=== PATIENT | male | born 1955 | race American Indian/Alaskan Native ===

== ENCOUNTER 2020-11-12 01:59 | Inpatient (IN) | payer MEDICARE ==
[2020-11-12 03:05] LABS: Hematocrit 42.8 % (35.5-45.6); Hemoglobin 14.3 gm/dl (11.8-15.2); Mean Corpuscular HGB Conc 34 % (32-34); Mean Corpuscular Volume 99 fl (84-94); Platelet Count 174 K/mm3 (140-440); Red Blood Count 4.31 M/mm3 (3.65-5.03); Red Cell Distribution Width 14.9 % (13.2-15.2)
[2020-11-12 03:16] LABS: Calcium 8.4 mg/dL (8.4-10.2)
[2020-11-12] MEDS ORDERED: FUROSEMIDE 40 MG/4 ML INJ IV ONE (03:52)
--- NOTE | 2020-11-12 04:20 | Emergency Department Report ---
ED Extremity Problem HPI - General Chief complaint: Extremity Injury, Lower Stated complaint: LEG AND FEET PAIN Source: patient Mode of arrival: Ambulatory Limitations: No Limitations - History of Present Illness Initial comments: 65-year-old male with history of either COPD and asthma as he states he is on oxygen, Spiriva who presents to emergency department complaint of bilateral lower extremity leg swelling. He denies any fevers chills or coughing. He states he has not had chest pain or shortness of breath. Patient was evaluated in triage where he was noted to have an elevated BNP to 13,000. 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 MD Complaint: extremity pain, extremity swelling - Related Data Allergies Allergy/AdvReac Type Severity Reaction Status Date / Time No Known Allergies Allergy Verified 11/12/20 03:18 ED Review of Systems ROS: Stated complaint: LEG AND FEET PAIN Other details as noted in HPI Constitutional: denies: chills, fever Eyes: denies: eye discharge ENT: denies: dental pain Respiratory: denies: cough, shortness of breath Cardiovascular: edema. denies: chest pain Endocrine: no symptoms reported Gastrointestinal: denies: abdominal pain, nausea, vomiting Genitourinary: denies: dysuria Musculoskeletal: denies: back pain Skin: denies: rash Neurological: denies: headache, weakness Psychiatric: denies: anxiety, depression Hematological/Lymphatic: denies: easy bleeding ED Past Medical Hx - Past Medical History Previous Medical History?: No - Surgical History Past Surgical History?: No ED Physical Exam - General Limitations: No Limitations General appearance: alert - Head Head exam: Present: atraumatic, normocephalic - Eye Eye exam: Present: normal appearance - ENT ENT exam: Present: mucous membranes moist - Neck Neck exam: Present: normal inspection - Respiratory Respiratory exam: Present: wheezes, rales. Absent: normal lung sounds kp aterally, respiratory distress - Cardiovascular Cardiovascular Exam: Present: regular rate, normal rhythm. Absent: systolic murmur, diastolic murmur, rubs, gallop - GI/Abdominal GI/Abdominal exam: Present: soft, normal bowel sounds - Rectal Rectal exam: Present: deferred - Extremities Exam Extremities exam: Present: other (bilateral LE pitting edema; 2+) - Back Exam Back exam: Present: normal inspection, full ROM. Absent: tenderness - Neurological Exam Neurological exam: Present: alert, oriented X3 - Psychiatric Psychiatric exam: Present: normal affect, depressed - Skin Skin exam: Present: warm, dry, intact ED Course Vital Signs 11/12/20 11/12/20 11/12/20 02:11 03:15 03:31 Temperature 97.6 F 97.7 F Pulse Rate 108 H 93 H 92 H Respiratory 18 21 21 Rate Blood Pressure 113/76 136/88 127/88 Blood Pressure 136/88 [Left] O2 Sat by Pulse 86 98 100 Oximetry 11/12/20 11/12/20 11/12/20 03:45 04:01 04:15 Temperature Pulse Rate 93 H 90 96 H Respiratory 22 20 22 Rate Blood Pressure 136/94 149/103 139/93 Blood Pressure [Left] O2 Sat by Pulse 100 98 97 Oximetry - Reevaluation(s) Reevaluation #1: 11/12/20 05:40 Patient remained stable. I have given IV Lasix for his leg swelling in signs of pulmonary edema on chest x-ray and lung exam. ED Medical Decision Making - Lab Data Result diagrams: 11/12/20 02:17 11/12/20 02:17 - EKG Data -: EKG Interpreted by Me No standard instances [place]/QRS: LAHB/LAFB T wave inversions noted in: v1, v2, v3, v4 - EKG Data Interpretation: nonspecific ST-T wave jv - Radiology Data Radiology results: report reviewed, image reviewed - Medical Decision Making Patient is a 65-year-old male presents to emergency department with complaints of leg swelling. Patient denies history of previous CHF exacerbation or diagnosis of CHF. He also denies feeling any chest pain or shortness of breath however he is on home oxygen for likely COPD or asthma. Patient has Rales noted at the bilateral bases he also has bilateral lower extremity pitting edema and in triage patient's BNP was 13,000. Given this I am concerned for new onset heart failure and I have given patient a dose of Lasix and I am closely monitoring his electrolytes. Patient to be admitted for new onset heart failure likely echocardiogram and cardiology consultation as well as further diuresis. Critical care attestation.: If time is entered above; I have spent that time in minutes in the direct care of this critically ill patient, excluding procedure time. ED Disposition Clinical Impression: Pulmonary edema, Fluid overload, New onset of congestive heart failure Disposition: OP ADMIT IP TO THIS HOSP Is pt being admited?: Yes Does the pt Need Aspirin: No Condition: Stable Instructions: Pulmonary Edema (ED) Referrals: PRIMARY CARE, [Primary Care Provider] - 3-5 Days Time of Disposition: 05:42
--- NOTE | 2020-11-12 04:20 | XRay Report ---
CHEST 1 VIEW 11/12/2020 3:12 AM INDICATION / CLINICAL INFORMATION: elevated bnp 13k. COMPARISON: None available FINDINGS: Patient is rotated SUPPORT DEVICES: None. HEART / MEDIASTINUM: No acute abnormality LUNGS / PLEURA: There is diffuse interstitial disease in the lungs this may represent edema but is mo re likely chronic interstitial lung disease. This is relatively severe. No pneumothorax. A more focal airspace opacity in the left midlung zone. ADDITIONAL FINDINGS: No significant additional findings. IMPRESSION: 1. There is severe bilateral interstitial disease which could represent edema but is more likely incident handler melany. There is no prior imaging available for comparison at this facility. 2. There is some coarse focal airspace opacity in the left midlung zone which could represent superim posed pneumonia. Signer Name: Ady Richter MD Signed: 11/12/2020 4:15 AM Workstation Name: [id number]
[2020-11-12 05:22] LABS: Albumin 2.5 g/dL (3.9-5); Bilirubin,Direct 0.2 mg/dL (0-0.2)
--- NOTE | 2020-11-12 06:13 | History and Physical Report ---
History of Present Illness Date of examination: 11/12/20 Date of admission: 11/12/20 05:42 Chief complaint: Bilateral leg edema History of present illness: 65-year-old male with history of either COPD and asthma as he states he is on oxygen, Spiriva who presents to emergency department complaint of bilateral lower extremity leg swelling. He denies any fevers chills or coughing. He states he has not had chest pain or shortness of breath. Patient was evaluated in triage where he was noted to have an elevated BNP to 13,000. 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 ED work-up WBC 3.6 H&H 14.3 platelet 174 sodium is 136 creatinine 1.4, BNP 70414, serum albumin 2.5, and serum glucose 126. Checks x-ray done showed severe bilateral interstitial disease which include present edema very small li brady chronic there is some coarse focal airspace opacity in the left midlung zone likely secondary to pneumonia. Patient seen in ED at bedside. Patient alert oriented x3. Patient is on oxygen and he said he is on home oxygen due to COPD. Patient denies ever smoking tobacco and he said he does not know how he gets COPD. Patient denies alcohol and illicit drug use. Patient admitted history of HIV on antiviral but could not remember his medication. We will resume his home antiviral. Patient advised to get of the names of the medicine and he voiced understanding. Past History Past Medical History: COPD, heart failure, HIV/AIDS Past Surgical History: No surgical history Social history: lives with family Family history: no significant family history Medications and Allergies Allergies Allergy/AdvReac Type Severity Reaction Status Date / Time No Known Allergies Allergy Verified 11/12/20 06:30 Review of Systems Constitutional: fatigue, weakness Ears, nose, mouth and throat: no epistaxis, no bleeding gums Cardiovascular: orthopnea, edema, shortness of breath, leg edema, no chest pain Respiratory: shortness of breath Gastrointestinal: no BRBPR, no melena Rectal: no hemorrhoids Musculoskeletal: no neck stiffness Integumentary: no redness, no sores Neurological: no seizures, no syncope Psychiatric: anxiety, no suicidal ideation, no disorientation, no hallucinations Hematologic/Lymphatic: no easy bruising, no easy bleeding Allergic/Immunologic: no urticaria Exam - Constitutional Vitals: Temp Pulse Resp BP Pulse Ox 97.7 F 84 20 136/88 99 11/12/20 03:15 11/12/20 05:45 11/12/20 05:45 11/12/20 05:45 11/12/20 05:45 General appearance: Present: no acute distress, well-nourished - EENT Eyes: Present: PERRL ENT: hearing intact, clear oral mucosa - Neck Neck: Present: supple, normal ROM - Respiratory Respiratory effort: normal Respiratory: bilateral: CTA - Cardiovascular Heart Sounds: Present: S1 & S2. Absent: rub, click - Extremities Extremities: pulses symmetrical, No edema Peripheral Pulses: within normal limits - Abdominal General gastrointestinal: Present: soft, non-tender, non-distended, normal bowel sounds Male genitourinary: Present: normal - Integumentary Integumentary: Present: clear, warm, dry - Musculoskeletal Musculoskeletal: gait normal, strength equal bilaterally - Psychiatric Psychiatric: appropriate mood/affect, intact judgment & insight - Neurologic Neurologic: CNII-XII intact, moves all extremities - Allied Health Allied health notes reviewed: nursing HEART Score - HEART Score Troponin: Troponin T 0.022 ng/mL (0.00-0.029) 11/12/20 04:14 Results - Labs CBC & Chem 7: 11/12/20 02:17 11/12/20 02:17 Labs: Abnormal lab results 11/12/20 11/12/20 11/12/20 Range/Units 02:17 02:17 04:14 WBC 3.6 L (4.5-11.0) K/mm3 MCV 99 H (84-94) fl MCH 33 H (28-32) pg Sodium 136 L (137-145) mmol/L Creatinine 1.4 H (0.8-1.3) mg/dL Glucose 126 H (75-100) mg/dL NT-Pro-B Natriuret Pep 70567 H (0-900) pg/mL Albumin 2.5 L (3.9-5) g/dL Assessment and Plan - Patient Problems (1) New onset of congestive heart failure Current Visit: Yes Status: Acute Plan to address problem: Start cardioprotective measures Antiplatelet, BB, diuretic and oxygen supplement Echocardiogram Cardiology consult (2) Pulmonary edema Current Visit: Yes Status: Acute Plan to address problem: Likely secondary to CHF/pneumonia Continue diuretic and antibiotics Cell Attendant consult (3) HIV (human immunodeficiency virus infection) Current Visit: Yes Status: Acute Plan to address problem: We will resume patient's home antiviral Patient unable to remember his home medicine (4) Severe protein-calorie malnutrition Current Visit: Yes Status: Acute Plan to address problem: Encourage oral intake Consult route delivery driver encourage oral intake (5) Acute kidney failure Current Visit: Yes Status: Acute Plan to address problem: Monitor kidney function Advised to avoid nephrotoxic including nonsteroidal anti-inflammatory agent like ibuprofen (6) Pneumonia involving left lung Current Visit: Yes Status: Acute Plan to address problem: left midlung airspace opacity likely secondary to pneumonia appreciated on chest x-ray Start azithromycin and Rocephin Bronchodilator and oxygen supplement Serial chest x-ray to check for resolution (7) History of chronic obstructive pulmonary disease Current Visit: Yes Status: Acute Plan to address problem: Resume home bronchodilator Patient is on home oxygen Cell Attendant consult (8) Full code status Current Visit: Yes Status: Acute Plan to address problem: Patient is a full code (9) DVT prophylaxis Current Visit: Yes Status: Acute Plan to address problem: Subcutaneous heparin
[2020-11-12] MEDS ORDERED: ACETAMINOPHEN 325 MG TAB PO PRN (06:17)
[2020-11-12] MEDS ORDERED: NALOXONE 0.4 MG/1 ML INJ IV PRN (06:17)
[2020-11-12] MEDS ORDERED: ONDANSETRON 4 MG/2 ML INJ IV PRN (06:17)
[2020-11-12] MEDS ORDERED: HYDROmorphone 1 MG/1 ML INJ IV PRN (06:17)
[2020-11-12] MEDS ORDERED: oxyCODONE /ACETAMINOPHEN 5-325MG TAB PO PRN (06:17)
[2020-11-12] MEDS ORDERED: ALUM-MAG HYDROXIDE-SIMETHICONE 200-200-20MG/5ML ORAL LIQD 30 ML PO PRN (06:17)
[2020-11-12] MEDS ORDERED: MAGNESIUM HYDROXIDE (MOM) ORAL LIQD UDC PO PRN (06:17)
[2020-11-12] MEDS ORDERED: ALPRAZolam 0.25 MG TAB PO PRN (06:17)
[2020-11-12] MEDS ORDERED: SENNOSIDES 8.6 MG TAB PO PRN (06:17)
[2020-11-12] MEDS ORDERED: traZODone 50 MG TAB PO PRN (06:29)
[2020-11-12] MEDS ORDERED: traMADol 50 MG TAB PO PRN (06:29)
[2020-11-12] MEDS ORDERED: hydrALAZINE 20 MG/1 ML INJ IV PRN (06:32)
[2020-11-12] MEDS ORDERED: AZITHROMYCIN/NS 500 MG/250 ML 500 MG/250 ML BAG IV SCH (07:00)
[2020-11-12] MEDS ORDERED: cefTRIAXone/NS 1 GM/50 ML 1 GM/50 ML BAG IV SCH (07:00)
[2020-11-12] MEDS ORDERED: cefTRIAXone/NS 2 GM/100 ML 2 GM/100 ML BAG IV SCH (07:00)
--- NOTE | 2020-11-12 08:37 | Consultation ---
History of Present Illness Consult date: 11/12/20 Reason for consult: asthma, COPD, hypoxemia History of present illness: 65 y/o male with chronic respiratory failure presents for lower ext edema. Per patient has chronic respiratory failure and is on 2 liters of oxygen. He is not short of breath nor complains of this. 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 CXR shows what appears to chronic ILD with possible super imposed pulmonary edema. Patient does have elevated BNP. Per patient he see's a lung doctor [place] [address] but cannot spell the name. He also does not know if he is on any meds for breathing. Per patient, that physician never told him he had COPD, "all of the others" have. He is a life long nonsmoker. Past History Past Medical History: COPD, heart failure, HIV/AIDS Past Surgical History: No surgical history Social history: lives with family Family history: no significant family history Medications and Allergies Allergies Allergy/AdvReac Type Severity Reaction Status Date / Time No Known Allergies Allergy Verified 11/12/20 06:30 Active Meds: Active Medications Acetaminophen (Acetaminophen 325 Mg Tab) 650 mg PO Q4H PRN PRN Reason: Pain MILD(1-3)/Fever >100.5/CHANDRA Al Hydrox/Mg Hydrox/Simethicone (Alum-Mag Hydroxide-Simethicone 133-175-29mt/5ml Oral Liqd 30 Ml) 30 ml PO Q4H PRN PRN Reason: Indigestion Alprazolam (Alprazolam 0.25 Mg Tab) 0.125 mg PO Q8H PRN PRN Reason: Agitation Aspirin (Aspirin Ec 81 Mg Tab) 81 mg PO QDAY [facility] Carvedilol (Carvedilol 3.125 Mg Tab) 3.125 mg PO BID [facility] Famotidine (Famotidine 20 Mg/2 Ml Inj) 20 mg IV BID [facility] Furosemide (Furosemide 40 Mg/4 Ml Inj) 40 mg IV BID@0600,1800 [facility] Heparin Sodium (Porcine) (Heparin 5,000 Unit/1 Ml Vial) 5,000 unit SUB-Q Q12HR [facility] Hydralazine HCl (Hydralazine 20 Mg/1 Ml Inj) 5 mg IV Q4HR PRN PRN Reason: Hypertension Azithromycin (Zithromax/Ns) 500 mg in 250 mls @ 250 mls/hr IV Q24H [facility]; Protocol Ceftriaxone Sodium (Rocephin/Ns 1 Gm/50 Ml) 1 gm in 50 mls @ 100 mls/hr IV Q24H [facility]; Protocol Last Admin: 11/12/20 06:42 Dose: 100 mls/hr Documented by: Magnesium Hydroxide (Magnesium Hydroxide (Mom) Oral Liqd Udc) 30 ml PO Q4H PRN PRN Reason: Constipation Naloxone HCl (Naloxone 0.4 Mg/1 Ml Inj) 0.1 mg IV Q2MIN PRN PRN Reason: Res Rate </= 8 or 02 SAT < 92% Ondansetron HCl (Ondansetron 4 Mg/2 Ml Inj) 4 mg IV Q8H PRN PRN Reason: Nausea And Vomiting Oxycodone/Acetaminophen (Oxycodone /Acetaminophen 5-325mg Tab) 1 tab PO Q6H PRN PRN Reason: Pain, Moderate (4-6) Senna (Sennosides 8.6 Mg Tab) 8.6 mg PO Q12HR PRN PRN Reason: Constipation Sodium Chloride (Sodium Chloride 0.9% 10 Ml Flush Syringe) 10 ml IV BID [facility] Tramadol HCl (Tramadol 50 Mg Tab) 50 mg PO Q6H PRN PRN Reason: Pain, Moderate (4-6) Trazodone HCl (Trazodone 50 Mg Tab) 50 mg PO QHS PRN PRN Reason: Insomnia Physical Examination Vital signs: Vital Signs Temp Pulse Resp BP Pulse Ox 97.6 F 108 H 18 113/76 86 11/12/20 02:11 11/12/20 02:11 11/12/20 02:11 11/12/20 02:11 11/12/20 02:11 General appearance: no acute distress, alert Ascultation: Bilateral: rales (dry and wet crackles present) Percussion: Bilateral: not dull Extremities: edema Results - Laboratory Findings CBC and BMP: 11/12/20 02:17 11/12/20 02:17 Abnormal lab findings: Abnormal Labs 11/12/20 11/12/20 11/12/20 02:17 02:17 02:17 WBC 3.6 L MCV 99 H MCH 33 H Sodium 136 L Creatinine 1.4 H Glucose 126 H Hemoglobin A1c 6.2 H NT-Pro-B Natriuret Pep 70749 H Albumin 11/12/20 04:14 WBC MCV MCH Sodium Creatinine Glucose Hemoglobin A1c NT-Pro-B Natriuret Pep Albumin 2.5 L - Diagnostic Findings Chest x-ray: image reviewed (please see HPI for my interpretation) Assessment and Plan 65 y/o male with LE edema and chronic respiratory found to have abnormal CXR which is chronic. 1. Given low WBC and no fever with no other symptoms, doubt pneumonia despite CXR read. Would stop abx therapy 2. Continue supplemental oxygen 3. Patient is not in a COPD exacerbation so no systemic steroids are indicated 4. Suggest finding his pharmacy and reconciling meds to see if we can find the name of his outside pulm doc 5. He is unaware if he has had a CT but thinks that he may have. Would suggest obtaining outside records first before repeating things that have already been done 6. Rupert worley patient is stable and not in an acute flare of his underlying ILD. At this point, will sign off.
[2020-11-12] MEDS: ASPIRIN EC 81 MG TAB PO SCH (09:58)
[2020-11-12] MEDS: carvediloL 3.125 MG TAB PO SCH ×2 (09:58→22:18)
[2020-11-12] MEDS: HEPARIN 5,000 UNIT/1 ML VIAL SUB-Q SCH ×2 (09:59→22:18)
[2020-11-12] MEDS: FAMOTIDINE 20 MG/2 ML INJ IV SCH ×2 (09:59→22:18)
--- NOTE | 2020-11-12 10:23 | Electrocardiograph Report ---
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
--- NOTE | 2020-11-12 10:24 | Consultation ---
History of Present Illness Consult date: 11/12/20 Requesting physician: ALFREDO GOYAL Consult reason: congestive heart failure History of present illness: This patient is a 65-year-old male with a significant history of chronic interstitial fibrosis on home oxygen via nasal cannula 2 L/min, HIV with undetectable CD4 count. He is previously unknown to our practice. Patient presents to [facility] ER with complaint of bilateral lower extremity edema x3 months. BNP is noted to be elevated on admission. Patient denies any weakness, dizziness, chest pain, shortness of breath, abdominal pain, N/V/D, recent illness or known exposures. He is not followed by cardiology. Patient denies any history of tobacco, EtOH, recreational drugs. Patient denies any previous diagnosis of heart failure or cardiomyopathy. Past History Past Medical History: COPD, HIV/AIDS, other (See HPI) Past Surgical History: No surgical history Social history: lives with family Family history: no significant family history Medications and Allergies Allergies Allergy/AdvReac Type Severity Reaction Status Date / Time No Known Allergies Allergy Verified 11/12/20 06:30 Active Meds: Active Medications Acetaminophen (Acetaminophen 325 Mg Tab) 650 mg PO Q4H PRN PRN Reason: Pain MILD(1-3)/Fever >100.5/CHANDRA Al Hydrox/Mg Hydrox/Simethicone (Alum-Mag Hydroxide-Simethicone 249-528-28ns/5ml Oral Liqd 30 Ml) 30 ml PO Q4H PRN PRN Reason: Indigestion Alprazolam (Alprazolam 0.25 Mg Tab) 0.125 mg PO Q8H PRN PRN Reason: Agitation Aspirin (Aspirin Ec 81 Mg Tab) 81 mg PO QDAY [facility] Last Admin: 11/12/20 09:58 Dose: 81 mg Documented by: Carvedilol (Carvedilol 3.125 Mg Tab) 3.125 mg PO BID [facility] Last Admin: 11/12/20 09:58 Dose: 3.125 mg Documented by: Famotidine (Famotidine 20 Mg/2 Ml Inj) 20 mg IV BID [facility] Last Admin: 11/12/20 09:59 Dose: 20 mg Documented by: Furosemide (Furosemide 40 Mg/4 Ml Inj) 40 mg IV BID@0600,1800 [facility] Heparin Sodium (Porcine) (Heparin 5,000 Unit/1 Ml Vial) 5,000 unit SUB-Q Q12HR [facility] Last Admin: 11/12/20 09:59 Dose: 5,000 unit Documented by: Hydralazine HCl (Hydralazine 20 Mg/1 Ml Inj) 5 mg IV Q4HR PRN PRN Reason: SBP >/=160; DBP >/=100 Magnesium Hydroxide (Magnesium Hydroxide (Mom) Oral Liqd Udc) 30 ml PO Q4H PRN PRN Reason: Constipation Naloxone HCl (Naloxone 0.4 Mg/1 Ml Inj) 0.1 mg IV Q2MIN PRN PRN Reason: Res Rate </= 8 or 02 SAT < 92% Ondansetron HCl (Ondansetron 4 Mg/2 Ml Inj) 4 mg IV Q8H PRN PRN Reason: Nausea And Vomiting Oxycodone/Acetaminophen (Oxycodone /Acetaminophen 5-325mg Tab) 1 tab PO Q6H PRN PRN Reason: Pain, Moderate (4-6) Senna (Sennosides 8.6 Mg Tab) 8.6 mg PO Q12HR PRN PRN Reason: Constipation Sodium Chloride (Sodium Chloride 0.9% 10 Ml Flush Syringe) 10 ml IV BID [facility] Last Admin: 11/12/20 09:59 Dose: 10 ml Documented by: Tramadol HCl (Tramadol 50 Mg Tab) 50 mg PO Q6H PRN PRN Reason: Pain, Moderate (4-6) Trazodone HCl (Trazodone 50 Mg Tab) 50 mg PO QHS PRN PRN Reason: Insomnia Review of Systems Constitutional: no weight loss, no weight gain, no fever, no chills, no sweats, no night sweats, no fatigue, no weakness, no malaise, no lethargy Ears, nose, mouth and throat: no ear pain, no nose pain, no nasal congestion, no nasal discharge Cardiovascular: edema, no chest pain, no orthopnea, no palpitations, no rapid/irregular heart beat, no syncope, no lightheadedness, no shortness of breath Respiratory: shortness of breath, home oxygen, no cough, no hemoptysis, no dyspnea on exertion Gastrointestinal: no abdominal pain, no nausea, no vomiting, no diarrhea Genitourinary Male: no flank pain Musculoskeletal: no neck stiffness, no neck pain, no shooting arm pain, no arm numbness/tingling, no low back pain, no shooting leg pain Integumentary: no rash, no pruritis, no redness, no sores, no wounds Neurological: no head injury, no paralysis, no weakness, no parathesias, no numbness, no tingling, no seizures, no syncope Psychiatric: no anxiety Endocrine: no cold intolerance, no heat intolerance Hematologic/Lymphatic: no easy bruising, no easy bleeding Allergic/Immunologic: no urticaria Physical Examination Last Vital Signs Temp 97.7 F 11/12/20 03:15 Pulse 78 11/12/20 09:58 Resp 20 11/12/20 08:01 BP 131/79 11/12/20 09:58 Pulse Ox 90 11/12/20 09:15 General appearance: no acute distress HEENT: Positive: PERRL, Normocephaly, Mucus Membranes Moist Neck: Positive: neck supple, trachea midline Cardiac: Positive: Reg Rate and Rhythm, S1/S2 Lungs: Positive: Normal Breath Sounds, Oxygen Neuro: Positive: Grossly Intact Abdomen: Positive: Unremarkable, Soft Skin: Negative: Rash, Wound Musculoskeletal: No Pain Extremities: Present: upper extr. pulses, lower extr. pulses, +1 Edema Results 11/12/20 02:17 11/12/20 02:17 Cardiac Enzymes 11/12/20 Range/Units 04:14 AST 37 (5-40) units/L CBC 11/12/20 Range/Units 02:17 WBC 3.6 L (4.5-11.0) K/mm3 RBC 4.31 (3.65-5.03) M/mm3 Hgb 14.3 (11.8-15.2) gm/dl Hct 42.8 (35.5-45.6) % Plt Count 174 (140-440) K/mm3 Comprehensive Metabolic Panel 11/12/20 11/12/20 Range/Units 02:17 04:14 Sodium 136 L (137-145) mmol/L Potassium 4.2 (3.6-5.0) mmol/L Chloride 99.9 (98-107) mmol/L Carbon Dioxide 28 (22-30) mmol/L BUN 15 (9-20) mg/dL Creatinine 1.4 H (0.8-1.3) mg/dL Glucose 126 H (75-100) mg/dL Calcium 8.4 (8.4-10.2) mg/dL Direct Bilirubin 0.2 (0-0.2) mg/dL Indirect Bilirubin 0.4 mg/dL AST 37 (5-40) units/L ALT 21 (7-56) units/L Alkaline Phosphatase 129 (35-129) units/L Total Protein 7.7 (6.3-8.2) g/dL Albumin 2.5 L (3.9-5) g/dL - Imaging and Cardiology Echo: pending EKG: report reviewed, image reviewed EKG interpretations - Telemetry EKG Rhythm: Sinus Rhythm - EKG Sinus rhythms and dysrhythmias: sinus rhythm Assessment and Plan New onset of acute heart failure * Echocardiogram is pending * Optimize volume control: Reduce Lasix to 40 mg IV daily. * GDMT: ASA 81. Lipid panel pending. Continue Coreg 3.125. Acute on chronic respiratory failure * Patient denies any current shortness of breath. Currently on supplemental O2 via nasal cannula. Patient is on home O2 at 2 L/min * Per pulmonology patient has significant history of chronic interstitial fibrosis with chronic hypoxemia DVT prophylaxis * Heparin SQ Echocardiogram is pending. Will follow. This patient was seen in conjunction with Dr. Andrade who agrees with this assessment and plan of care - Patient Problems (1) Acute on chronic respiratory failure Current Visit: Yes Status: Acute (2) DVT prophylaxis Current Visit: Yes Status: Acute (3) HIV (human immunodeficiency virus infection) Current Visit: Yes Status: Chronic (4) New onset of congestive heart failure Current Visit: Yes Status: Acute (5) Leg edema Current Visit: Yes Status: Acute (6) Interstitial pulmonary fibrosis Current Visit: Yes Status: Chronic
--- NOTE | 2020-11-12 15:05 | Event Note ---
Date: 11/12/20 Patient seen and examined this is the second visit after midnight 65-year-old male with a history of chronic respiratory failure on 2 L home O2 pr esented to the hospital with lower extremity swelling and worsening difficulty in breathing. Cardiology consulted, 2D echo ordered. Continue IV Lasix and breathing treatment as needed Patient denies any chest pain, states his breathing has been improved He was recently seen at [facility] and he presented to [facility] for second opinion as his symptoms has been persistent since his recent discharge from [facility] We will follow clinically, monitor ins and O's/daily weight We will get records from [facility] and follow 2D echo result -It took me about 28 minutes to reevaluate and reasses this patient, discussed with RN/CM, review medical documents, lab results, imaging, medication list and placing order.
[2020-11-12] MEDS: FUROSEMIDE 40 MG/4 ML INJ IV SCH (18:04)
[2020-11-13 04:43] VITALS: BP 108/71
[2020-11-13] MEDS: FUROSEMIDE 40 MG/4 ML INJ IV SCH (06:16)
[2020-11-13 09:55] LABS: Basophils % (Auto) 0.6 % (0.0-1.8); Eosinophils # (Auto) 0.1 K/mm3 (0.0-0.4); Eosinophils % (Auto) 3.4 % (0.0-4.3); Hematocrit 43.4 % (35.5-45.6); Hemoglobin 14.4 gm/dl (11.8-15.2); Lymphocytes # (Auto) 0.9 K/mm3 (1.2-5.4); Lymphocytes % (Auto) 26.4 % (13.4-35.0); Mean Corpuscular HGB Conc 33 % (32-34); Mean Corpuscular Volume 99 fl (84-94); Monocytes # (Auto) 0.4 K/mm3 (0.0-0.8); Monocytes % (Auto) 12.1 % (0.0-7.3); Platelet Count 172 K/mm3 (140-440); Red Blood Count 4.37 M/mm3 (3.65-5.03); Red Cell Distribution Width 14.8 % (13.2-15.2)
[2020-11-13 10:08] LABS: Alanine Aminotransferase 17 units/L (7-56); Albumin 2.4 g/dL (3.9-5); BUN/Creatinine Ratio 11; Blood Urea Nitrogen 15 mg/dL (9-20); Calcium 8.3 mg/dL (8.4-10.2); Chol/HDL Ratio 10.23 %; HDL Cholesterol 13 mg/dL (40-59); Hemolysis Index 17; LDL Cholesterol,Direct 84 mg/dL (50-130)
[2020-11-13] MEDS: FAMOTIDINE 20 MG/2 ML INJ IV SCH (10:50)
[2020-11-13] MEDS: ASPIRIN EC 81 MG TAB PO SCH (10:50)
[2020-11-13] MEDS: carvediloL 3.125 MG TAB PO SCH (10:50)
[2020-11-13] MEDS: HEPARIN 5,000 UNIT/1 ML VIAL SUB-Q SCH (10:50)
--- NOTE | 2020-11-13 12:36 | Progress Note ---
Assessment and Plan New onset of acute heart failure in setting of right ventricle cardiomyopathy * Echocardiogram 11/12/2020: LVEF 50 to 55%. LV normal size, LV SF normal. Flattened septum consistent with right ventricular volume overload. Mild diastolic dysfunction present. RV severely dilated. Septum is flattened in systole consistent with RV pressure overload. Right ventricle is mildly hypokinetic. Moderator band is seen in the right ventricle. Mild TR, RVSP 22 mmHg. Mild TX. * Optimize volume control: Reduce Lasix to 20 mg p.o. daily * GDMT: ASA 81mg daily, Atorvastatin 40mg qhs, Coreg 3.125mg BID. Acute on chronic respiratory failure * Patient denies any current shortness of breath. Currently on supplemental O2 via nasal cannula. Patient is on home O2 at 2 L/min * Per pulmonology patient has significant history of chronic interstitial fibrosis with chronic hypoxemia DVT prophylaxis * Heparin SQ Patient is currently stable cardiac status. Patient may discharge from cardiology standpoint on regimen of Lasix 20 mg p.o. daily. Patient should follow-up with Dr Andrade, [facility] heart specialists (scheduling pending) #[phone] This patient was seen in conjunction with Dr. Andrade who agrees with this assessment and plan of care - Patient Problems (1) Acute on chronic respiratory failure Current Visit: Yes Status: Acute (2) DVT prophylaxis Current Visit: Yes Status: Acute (3) HIV (human immunodeficiency virus infection) Current Visit: Yes Status: Chronic (4) New onset of congestive heart failure Current Visit: Yes Status: Acute (5) Leg edema Current Visit: Yes Status: Acute (6) Interstitial pulmonary fibrosis Current Visit: Yes Status: Chronic (7) Cor pulmonale Current Visit: Yes Status: Acute (8) Right heart failure due to pulmonary hypertension Current Visit: Yes Status: Acute Subjective Date of service: 11/13/20 Principal diagnosis: Cor Pulmonale Interval history: Patient resting comfortably in bed. No shortness of breath or chest pain overnight Telemetry reviewed shows sinus tach 108 with no events Objective - Physical Examination HEENT: Positive: PERRL, Normocephaly, Mucus Membranes Moist Neck: Positive: neck supple, trachea midline Cardiac: Positive: Regular Rhythm, S1/S2 Lungs: Positive: Normal Exam, Normal Breath Sounds Neuro: Positive: Grossly Intact Abdomen: Positive: Unremarkable, Soft Skin: Negative: Rash, Wound Musculoskeletal: No Pain Extremities: Present: upper extr. pulses, lower extr. pulses, +1 Edema - Labs and Meds Cardiac Enzymes 11/13/20 Range/Units 08:45 AST 30 (5-40) units/L Lipids 11/13/20 Range/Units 08:45 Triglycerides 49 (2-149) mg/dL Cholesterol 133 (50-199) mg/dL HDL Cholesterol 13 L (40-59) mg/dL Cholesterol/HDL Ratio 10.23 % CBC 11/13/20 Range/Units 08:45 WBC 3.2 L (4.5-11.0) K/mm3 RBC 4.37 (3.65-5.03) M/mm3 Hgb 14.4 (11.8-15.2) gm/dl Hct 43.4 (35.5-45.6) % Plt Count 172 (140-440) K/mm3 Lymph # (Auto) 0.9 L (1.2-5.4) K/mm3 [place] # (Auto) 0.4 (0.0-0.8) K/mm3 Eos # (Auto) 0.1 (0.0-0.4) K/mm3 Baso # (Auto) 0.0 (0.0-0.1) K/mm3 Comprehensive Metabolic Panel 11/13/20 Range/Units 08:45 Sodium 140 (137-145) mmol/L Potassium 4.1 (3.6-5.0) mmol/L Chloride 97.7 L (98-107) mmol/L Carbon Dioxide 33 H (22-30) mmol/L BUN 15 (9-20) mg/dL Creatinine 1.4 H (0.8-1.3) mg/dL Glucose 96 (75-100) mg/dL Calcium 8.3 L (8.4-10.2) mg/dL AST 30 (5-40) units/L ALT 17 (7-56) units/L Alkaline Phosphatase 115 (35-129) units/L Total Protein 7.7 (6.3-8.2) g/dL Albumin 2.4 L (3.9-5) g/dL - Imaging and Cardiology EKG: report reviewed, image reviewed Echo: report reviewed (Echocardiogram 11/12/2020: LVEF 50 to 55%. LV normal size, LV SF normal. Flattened septum consistent with right ventricular volume overload. Mild diastolic dysfunction present. RV severely dilated. Septum is flattened in systole consistent with RV pressure overload. Right ventricle is mildly hy) - Telemetry EKG Rhythm: Sinus Tachycardia - EKG Sinus rhythms and dysrhythmias: sinus rhythm
--- NOTE | 2020-11-13 15:35 | Discharge Summary ---
Providers - Providers Date of Admission: 11/12/20 14:46 Date of discharge: 11/13/20 Attending physician: NESSA JOHNSON 11/12/20 06:36 Consult to Physician [CONS] Routine Comment: Consulting Provider: RAMONE PATEL Physician Instructions: Reason For Exam: chf 11/12/20 06:42 Consult to Dietitian/Nutrition [CONS] Stat Physician Instructions: Reason For Exam: Reason for Consult: Malnutrition 11/12/20 16:19 Physical Therapy Evaluation and Treat [CONS] Urgent Comment: Reason For Exam: PT to eval and treat 11/12/20 16:20 Occupational Therapy Evaluate and Treat [CONS] Routine Comment: Reason For Exam: OT to eval and treat Primary care physician: SAMPLE CHECKER Hospitalization Condition: Stable Pertinent studies: CXR, 2d echo Hospital course: This patient is a 65-year-old male with a significant history of chronic interstitial fibrosis on home oxygen via nasal cannula 2 L/min, HIV with undetectable CD4 count presents to [facility] ER with complaint of bilateral lower extremity edema x3 months. BNP is noted to be elevated on admission. Patient was admitted to telemetry floor with scheduled iv diuretics. Monitored with serial CE, EKG. Cardiology consulted, 2d echo obtained. Provided cardiac diet, daily weights, monitored in's and O's. 2D echo showed preserved EF and right-sided heart failure. Patients symptom improved with medical management. Patient was then discharged home with home O2 in stable condition with outpt f/u. Disposition: DC-30 STILL A PATIENT Final Discharge Diagnosis (Prints w/discharge instructions): -- Acute on chronic respiratory failure. Current Visit: Yes Status: Acute. -- HIV (human immunodeficiency virus infection). Current Visit: Yes Status: Chronic. . --Interstitial pulmonary fibrosis. Current Visit: Yes Status: Chronic. -- Cor pulmonale. Current Visit: Yes Status: Acute. -- Right heart failure due to pulmonary hypertension. Current Visit: Yes Status: Acute Core Measure Documentation - Palliative Care Palliative Care/ Comfort Measures: Not Applicable - Core Measures Any of the following diagnoses?: heart failure - Heart Failure Discharge Requirements ALAYNA/ARB for LVSD if EF <40%: Not Applicable Beta riaz at discharge: Yes Exam - Physical Exam Narrative exam: HEENT: Positive: PERRL, Normocephaly, Mucus Membranes Moist Neck: Positive: neck supple, trachea midline Cardiac: Positive: Regular Rhythm, S1/S2 Lungs: Positive: Normal Exam, Normal Breath Sounds Neuro: Positive: Grossly Intact Abdomen: Positive: Unremarkable, Soft Skin: Negative: Rash, Wound Musculoskeletal: No Pain Extremities: Present: upper extr. pulses, lower extr. pulses, +1 Edema - Constitutional Vitals: Temp Pulse Resp BP Pulse Ox 98.2 F 84 17 108/71 93 11/13/20 04:09 11/13/20 04:14 11/13/20 04:09 11/13/20 04:09 11/13/20 04:14 Plan Activity: advance as tolerated Weight Bearing Status: Weight Bear as Tolerated Diet: low fat, low salt Durable Medical Equipment Needed Upon Discharge: Nebulizer Follow up with: PRIMARY MD MARTHA [Primary Care Provider] - 3-5 Days USMAN DAVIS MD [Staff Physician] - 7 Days Prescriptions: AtorvaSTATin [Lipitor] 40 mg PO QHS #30 tablet carvediloL [Coreg] 3.125 mg PO BID #60 tablet Ipratropium/Albuterol Sulfate [DUONEB *Not for PRN Use*] 1 ampul IH Q6HR #30 ampul.neb Aspirin EC [Halfprin EC] 81 mg PO QDAY #30 tablet Furosemide [Lasix TAB] 20 mg PO QDAY #30 tablet
[2020-11-13] MEDS ORDERED: dilTIAZem 30 MG TAB PO SCH (22:00)
[2020-11-14] MEDS ORDERED: FUROSEMIDE 20 MG TAB PO SCH (10:00)
== END 2020-11-13 19:48 | disposition home health service (06) | DRG 189 ==
LOC: ED 01:59 → 4A 05:42 → OBSVTOIN 14:46
PROVIDERS: ADMIT Internal Medicine Geriatric Medicine; ATTEND Internal Medicine
DX: J96.21 Acute and chronic respiratory failure with hypoxia (principal); E43 Unspecified severe protein-calorie malnutrition; B20 Human immunodeficiency virus [HIV] disease; J18.9 Pneumonia, unspecified organism; N17.9 Acute kidney failure, unspecified; J44.0 Chronic obstructive pulmonary disease with (acute) lower respiratory infection; I42.9 Cardiomyopathy, unspecified; I50.811 Acute right heart failure; E87.70 Fluid overload, unspecified; Z68.20 Body mass index [BMI] 20.0-20.9, adult; J84.10 Pulmonary fibrosis, unspecified; I27.29 Other secondary pulmonary hypertension; I27.81 Cor pulmonale (chronic)
CPT/HCPCS: 36415; 71045; 80048; 80053; 80061; 80076; 83036; 83735; 83880; 84484; 85025; 85027; 93005; 93306; 96365; 96367; G0378; J0696; J1644; J1940